=== PATIENT | male | born 1965 | race Two or more races ===

== ENCOUNTER 2023-12-21 20:54 | Inpatient (IN) | payer MEDICAID, OTHER ==
[~2023-12-21] VITALS: Ht 165.1 cm; Wt 62.8 kg
[2023-12-21 22:05] LABS: Basophils # (auto) 0 10 ^3/uL (0-0.2); Basophils % (auto) 0.6 % (0.0-2.0); Eosinophils # (auto) 0.2 10 ^3/uL (0-0.8); Hematocrit 36.1 % (41.0-53.0); Hemoglobin 11.9 g/dL (13.5-17.5); Lymphocytes # (auto) 1.1 10 ^3/uL (0.4-5.4); Lymphocytes % (auto) 20.1 % (10.0-50.0); Mean Corpuscular Hemoglobin 29.2 pg (28.0-32.0); Mean Corpuscular Volume 88.4 fL (80.0-100.0); Monocytes # (auto) 0.5 10 ^3/uL (0-1.3); Monocytes % (auto) 9.4 % (0.0-12.0); Neutrophils # (auto) 3.6 10 ^3/uL (1.6-8.6); Neutrophils % (auto) 66.9 % (37.0-80.0); Nucleated Red Blood Cells % 0.1 %; Red Blood Cells 4.08 10^6/uL (4.5-5.90); Red Cell Distribution Width 13.1 % (11.8-14.3); White Blood Cell 5.4 10^3/uL (4.4-10.8)
[2023-12-21 22:20] LABS: Alanine Aminotransferase 24 U/L (7-40); Albumin 4.5 g/dL (3.2-4.8); Alkaline Phosphatase 118 U/L (46-116); Anion Gap 5 (5-15); Aspartate Aminotransferase 19 U/L (13-40); BUN/Creatinine Ratio 27.8 (10.0-20.0); Blood Urea Nitrogen 27 mg/dL (9-23); Calcium 9.7 mg/dL (8.5-10.1); Carbon Dioxide 28 mmol/L (20-30); Chloride 104 mmol/L (98-107); Glucose 119 mg/dL (74-106); Potassium 4.4 mmol/L (3.5-5.1); Sodium 137 mmol/L (136-145)
[2023-12-21 22:21] LABS: Bilirubin, Total 0.4 mg/dL (0.2-1.0); Total Protein 7.5 g/dL (5.7-8.2)
[2023-12-22] VITALS (9 sets, daily range): BP systolic 119–146; BP diastolic 57–90; PULSE 70–98; RESP 15–22; TEMP 97.9–98.4; O2SAT 95–100
[2023-12-22] MEDS: ONDANSETRON HCL 4 MG/2 ML VIAL IV ONE
[2023-12-22] MEDS: MECLIZINE HCL 25 MG TAB PO ONE
[2023-12-22] MEDS: SODIUM CHLORIDE 0.9% 1,000 ML IV ONE ×3 (00:23→14:45)
[2023-12-22] MEDS ORDERED: DEXTROSE (50%) 50ML SYRG IV PRN (01:00)
[2023-12-22] MEDS ORDERED: ONDANSETRON HCL 4 MG/2 ML VIAL IV PRN (01:00)
[2023-12-22 01:22] LABS: Urine Bacteria NONE SEEN /hpf (None Seen); Urine Blood Negative /uL (Negative); Urine Clarity Clear (Clear); Urine Color Yellow (Yellow); Urine Hyaline Cast FEW /lpf (0 - 2); Urine Mucus FEW (None Seen); Urine Protein, UAD Negative (Negative); Urine Specific Gravity 1.018 (1.001-1.035); Urine Urobilinogen Normal (Negative); Urine WBC 4 /hpf (0 - 3); Urine pH 5.5 (5.0-8.0)
[2023-12-22] MEDS: MIDODRINE HCL 10 MG TAB PO ONE (01:23)
[2023-12-22] MEDS: ACCU-CHEK COMFORT CURVE STRIP VI SCH (07:12)
[2023-12-22] MEDS: InsuLIN REG 1unit/0.01ml Soln (100units/ml) SC SCH (07:14)
[2023-12-22] MEDS: MIDODRINE HCL 10 MG TAB PO SCH (09:44)
[2023-12-22] MEDS: ACETAMINOPHEN 325 MG TAB PO PRN (09:44)
[2023-12-23 05:00] VITALS: BP_SYST 0; BP_SYST 118; BP_DIAS 67; PULSE 66; RESP 22; TEMP 98.4; O2SAT 100
[2023-12-23] MEDS ORDERED: IOHEXOL 300 MG/ML 100ML BOTTLE IJ ONE (06:37)
[2023-12-23 09:00] VITALS: BP 108/74; PULSE 80; RESP 18; TEMP 98.8; O2SAT 99
[2023-12-23 13:00] VITALS: BP 187/95; PULSE 94; RESP 20; TEMP 98.4; O2SAT 99
[2023-12-23 16:49] VITALS: BP 107/66; PULSE 84; RESP 18; TEMP 98.6; O2SAT 97
== END 2023-12-23 18:22 | disposition home or self-care (01) | DRG 207 ==
LOC: ER 20:56 → WEST WING 12-22 01:02 → OVERFLOW 12-22 01:02 → WEST WING 12-22 05:40
PROVIDERS: ADMIT Nurse Practitioner; ATTEND Nurse Practitioner Acute Care
DX: I95.89 Other hypotension (principal); R57.1 Hypovolemic shock; S91.019A Laceration without foreign body, unspecified ankle, initial encounter; D64.9 Anemia, unspecified; E11.9 Type 2 diabetes mellitus without complications; R79.89 Other specified abnormal findings of blood chemistry; Z88.0 Allergy status to penicillin
CPT/HCPCS: 36415; 70450; 71260; 72125; 74177; 80053; 81001; 82962; 83605; 84484; 85025; 87040; 87081; 93005; 93306; G0378; J1815